=== PATIENT | female | born 1975 | race Two or more races ===

== ENCOUNTER 2019-01-22 21:14 | Emergency (ER) | payer OTHER ==
--- NOTE | 2019-01-22 21:29 | ER Document Report ---
ED Medical Screen (RME) - General Chief Complaint: Urinary Problem Stated Complaint: POSSIBLE UTI Time Seen by Provider: 01/22/19 21:25 Mode of Arrival: Ambulatory Information source: Patient Notes: 43-year-old female presents to ED for complaint of frequency urgency and burning with urination since about 6 PM tonight. She does not have any other signs or symptoms of any other problems at this time. States she does not smoke or use any illicit drugs she states she does have an occasional wine. She states she has no other past medical history. I have greeted and performed a rapid initial assessment of this patient. A comprehensive ED assessment and evaluation of the patient, analysis of test results and completion of medical decision making process will be conducted by an additional ED providers. Physical Exam - Vital signs Vitals: Temp Pulse Resp Pulse Ox 97.9 F 63 16 100 01/22/19 21:18 01/22/19 21:18 01/22/19 21:18 01/22/19 21:18 Course - Vital Signs Vital signs: Temp Pulse Resp BP Pulse Ox 97.9 F 63 16 100 01/22/19 21:18 01/22/19 21:18 01/22/19 21:18 01/22/19 21:18
[2019-01-22 21:52] LABS: APPEARANCE,URINE CLEAR; BILIRUBIN,URINE NEGATIVE (NEGATIVE); COLOR,URINE COLORLESS; GLUCOSE, URINE NEGATIVE (NEGATIVE); KETONES,URINE NEGATIVE (NEGATIVE); PROTEIN,URINE NEGATIVE (NEGATIVE); URINE SPECIFIC GRAVITY 1.002; UROBILINOGEN,URINE NEGATIVE mg/dL (<2.0)
[2019-01-22 22:15] VITALS: BP 119/65
[2019-01-22] MEDS ORDERED: CEPHALEXIN 500 MG CAPSULE PO ONE (22:16)
--- NOTE | 2019-01-22 22:16 | ER Document Report ---
HPI - HPI Time Seen by Provider: 01/22/19 21:25 Pain Level: 1 Notes: Patient is a 43-year-old female who presents complaining urinary burning, urgency, frequency, suprapubic pressure that began this afternoon. Patient states that she is starting to develop a UTI she has had this before. She is able to eat and drink without difficulty. She is having normal bowel movements. No other vaginal discharge, odor, or bleeding. She has no concern of STD or STI. Denies drug allergies. No other concerns or complaints. Denies any headache, fever, neck pain, URI, sore throat, chest pain, palpitations, syncope, cough, shortness of breath, wheeze, dyspnea, abdominal pain, nausea/vomiting/diarrhea, back pain, loss of control of bowel or bladder, numbness/tingling, muscle paralysis/weakness, or rash. - ROS Systems Reviewed and Negative: Yes All other systems reviewed and negative - REPRODUCTIVE LMP: 01/12/19 Past Medical History - General Information source: Patient - Social History Smoking Status: Never Smoker Family History: Reviewed & Not Pertinent Patient has suicidal ideation: No Patient has homicidal ideation: No Vertical Provider Document - CONSTITUTIONAL Agree With Documented VS: Yes Notes: PHYSICAL EXAMINATION: GENERAL: Well-appearing, well-nourished and in no acute distress. HEAD: Atraumatic, normocephalic. EYES: Pupils equal round and reactive to light, extraocular movements intact, sclera anicteric, conjunctiva are normal. ENT: Nares patent and without discharge. oropharynx clear without exudates. No tonsilar hypertrophy or erythema. Moist mucous membranes. NECK: Normal range of motion, supple without lymphadenopathy LUNGS: Breath sounds clear to auscultation bilaterally and equal. No wheezes rales or rhonchi. HEART: Regular rate and rhythm without murmurs, rubs, gallops. ABDOMEN: Soft, nontender, nondistended abdomen. No guarding, no rebound. Normal bowel sounds present. No CVA tenderness bilaterally. Musculoskeletal: FROM to passive/active. Strength 5+/5. Extremities: No cyanosis, clubbing, or edema b/l. Peripheral pulses 2+. Capillary refill less than 3 seconds. NEUROLOGICAL: Normal speech, normal gait. PSYCH: Normal mood, normal affect. SKIN: Warm, Dry, normal turgor, no rashes or lesions noted. Course - Re-evaluation Re-evalutation: 01/22/19 22:12 Patient is an afebrile, well-hydrated, 43-year-old female who presents with dysuria, possible early onset UTI as her symptoms just began this afternoon. Vitals are acceptable without significant tachycardia, tachypnea, or hypoxia. PE is otherwise unremarkable. Patient is nontoxic-appearing and is tolerating p.o. without difficulty. Her abdomen is soft and nontender throughout. Urinalysis does have trace bacteria and due to symptomatology and early onset, I will tentatively sent her home with a prescription for Keflex with first dose given today while the urine culture is pending. No further work-up warranted at this time. Low suspicion/risk for acute appendicitis, bowel obstruction, acute cholecystitis, acute cholangitis, perforated diverticulitis, incarcerated hernia, pancreatitis, perforated ulcer, peritonitis, sepsis, pelvic inflammatory disease, ectopic , tubo-ovarian abscess, ovarian torsion, or other systemic emergent condition at this time. Patient is aware that her condition can change from initial presentation and she needs to monitor symptoms closely and seek medical attention if any acute changes. Conservative measures otherwise for symptoms. Recheck with your PCM in 2-3 days. Return to the ED with any worsening/concerning symptoms otherwise as reviewed in discharge. Patient is in agreement. - Vital Signs Vital signs: Temp Pulse Resp BP Pulse Ox 97.9 F 63 16 100 01/22/19 21:24 01/22/19 21:18 01/22/19 21:24 01/22/19 21:24 - Laboratory Laboratory results interpreted by me: 01/22/19 21:25 Urine Blood MODERATE H Leukocyte Esterase Rfl SMALL H Discharge - Discharge Clinical Impression: Dysuria Condition: Stable Disposition: HOME, SELF-CARE Additional Instructions: Push fluids (i.e. water, cranberry juice) Proper hygenic technique Keep the skin clean Tylenol/ibuprofen as needed May use over the counter AZO for burning with urination Take medications as directed F/u with your PCM in 3-5 days for a recheck Consider consult with a Urologist for ongoing/worsening symptoms. Return to the ED with any worsening symptoms and/or development of fever, headache, chest pain, palpitations, syncope, shortness of breath, trouble breathing, abdominal pain, n/v/d, blood in stool/urine, loss of control of bowel/bladder, urinary retention, or other worsening symptoms that are concerning to you. Prescriptions: Cephalexin Monohydrate [Keflex 500 mg Capsule] 500 mg PO TID #21 capsule Referrals: [facility] [Provider Group] - Follow up as needed
== END 2019-01-22 22:25 | disposition home or self-care (01) ==
LOC: ER 21:14
DX: R30.0 Dysuria (principal); R39.15 Urgency of urination; R35.0 Frequency of micturition
CPT/HCPCS: 81001; 81025; 99283